=== PATIENT | female | born 1960 | race Caucasian/White ===

== ENCOUNTER 2016-12-11 20:43 | Emergency (ER) | payer BC, OTHER ==
[~2016-12-11] VITALS: Ht 162.6 cm; Wt 77.0 kg
[~2016-12-11 20:43] MED LIST: AMLO-145; LISI40TA; METO50TA16
[2016-12-11 20:49] VITALS: Ht 162.6 cm; Wt 77.0 kg
[2016-12-11] MEDS ORDERED: SOD CHLORIDE 0.9% 1,000 ML IV STA (21:34)
[2016-12-11] MEDS ORDERED: ONDANSETRON 4 MG INJ IV STA (21:34)
[2016-12-11] MEDS ORDERED: morphine 4 MG/ML VIAL IV STA (21:34)
[2016-12-11 22:03] LABS: ADD SCAN DIFF NO
[2016-12-11 22:05] LABS: BASOPHIL # 0.1 10^3/ul (0.0-0.1); BASOPHILS % 0.5 % (0.0-2.0); EOSINOPHILS # 0.1 10^3/ul (0.0-0.5); EOSINOPHILS % 1.1 % (0.0-7.0); HEMOGLOBIN 12.9 g/dl (12.0-16.0); LYMPHOCYTES # 2.8 10^3/ul (0.8-2.9); LYMPHOCYTES % 26.8 % (15.0-51.0); MEAN CORPUSCULAR HEMOGLOBIN 32.4 pg (29.0-33.0); MEAN CORPUSCULAR HGB CONC 34.9 g/dl (32.0-37.0); MEAN PLATELET VOLUME 9.5 fl (7.4-10.4); MONOCYTE # 0.7 10^3/ul (0.3-0.9); MONOCYTES % 6.9 % (0.0-11.0); NEUTROPHIL # 6.7 10^3/ul (1.6-7.5); NEUTROPHILS % 64.3 % (39.0-77.0); PLATELET COUNT 310 10^3/UL (140-415); RED BLOOD COUNT 3.98 10^6/ul (4.20-5.40); WHITE BLOOD COUNT 10.4 10^3/ul (4.8-10.8)
[2016-12-11 22:08] LABS: ADD UMIC YES; UR ASCORBIC ACID NEGATIVE (NEGATIVE); UR BILIRUBIN (Dip) NEGATIVE (NEGATIVE); UR BLOOD (Dip) 2+ mg/dL (NEGATIVE); UR CLARITY CLEAR (CLEAR); UR COLOR YELLOW (YELLOW); UR GLUCOSE (Dip) NEGATIVE (NEGATIVE); UR KETONES (Dip) NEGATIVE (NEGATIVE); UR LEUKOCYTE ESTERASE (Dip) TRACE Leu/ul (NEGATIVE); UR MUCUS FEW /HPF (NONE SEEN); UR NITRITE (Dip) NEGATIVE (NEGATIVE); UR RBC 7 /HPF (0-5); UR SPECIFIC GRAVITY (Dip) 1.023 (1.003-1.030); UR SQUAMOUS EPITHELIAL CELL FEW /HPF (FEW); UR TOTAL PROTEIN (Dip) NEGATIVE (NEGATIVE); UR UROBILINOGEN (Dip) 2+ mg/dL (NEGATIVE)
[2016-12-11 22:22] LABS: ALANINE AMINOTRANSFERASE 107 IU/L (13-69); ALBUMIN 4.9 g/dl (3.3-4.9); ALBUMIN/GLOBULIN RATIO 1.68; ALKALINE PHOSPHATASE 101 IU/L (42-121); ANION GAP 18 (8-16); ASPARTATE AMINO TRANSFERASE 217 IU/L (15-46); BILIRUBIN,INDIRECT 0.7 mg/dl (0-1.1); BILIRUBIN,TOTAL 0.7 mg/dl (0.2-1.3); BLOOD UREA NITROGEN 16 mg/dl (7-20); CALCIUM 10.4 mg/dl (8.4-10.2); CARBON DIOXIDE 31 mmol/L (21-31); CHLORIDE 97 mmol/L (97-110); CREATININE 0.71 mg/dl (0.44-1.00); GLUCOSE 114 mg/dl (70-220); POTASSIUM 3.5 mmol/L (3.5-5.1); SODIUM 142 mmol/L (135-144); TOTAL PROTEIN 7.8 g/dl (6.1-8.1)
[2016-12-11 22:36] LABS: TROPONIN-I < 0.012 ng/ml (0.00-0.12)
--- NOTE | 2016-12-11 22:52 | RADRPT ---
PROCEDURE: US right upper quadrant CLINICAL INDICATION: Abdominal pain TECHNIQUE: Multiple real-time images were acquired of the patient's right upper abdomen utilizing a high resolution transducer. COMPARISON: None available FINDINGS: Liver: Normal in size, contour and echogenicity. The maximum dimension estimated at 7.5 cm . Gallbladder: Multiple mobile echogenic foci with distal acoustic shadowing are present. . There is no evidence of gallbladder wall thickening or pericholecystic fluid. No sonographic Thrasher's sign i s reported. Common bile duct: Prominent; 6.6 mm. There is no evidence for choledocholithiasis. Right Kidney: Normal; maximum length measured at approximately 10.6 cm. Pancreas: Visualized portions are normal. The tail is partially obscured by bowel gas. RPTAT:HJJR IMPRESSION: Cholelithiasis and slight prominence of the common bile duct unable to exclude cholecystitis despite the lack of reporting for a sonographic Thrasher's sign or gallbladder wall thickening. Physician Meghana Date Time Electronically viewed and signed by Physician Meghana on 12/11/2016 22:52 /
[2016-12-11] MEDS ORDERED: MULTI PO (23:10)
--- NOTE | 2016-12-11 23:16 | ERA ---
ER Documentation Chief Complaint Date/Time DATE: 12/11/16 TIME: 23:13 Chief Complaint epigastric burning pain an hour ago, took Prilosec 40 minutes ago HPI Patient is a 56-year-old female with hypertension and alcohol abuse who presents with abdominal pain. Tonight she had Romanian food with pepper and then started with abdominal pain this evening. The pain is been constant. She feels pain in the right upper quadrant and epigastric area. She denies fevers. She has had vomiting. She tried Prilosec. She does have a primary doctor Dr. Uy. WOOD All systems reviewed and are negative except as per history of present illness. Medications Home Meds Reported Medications Multivitamins* (Theragran*) 1 Tab Tab, 1 TAB PO DAILY, TAB 12/11/16 Amlodipine Besylate* (Amlodipine Besylate*) 5 Mg Tablet, DAILY 10/29/13 Lisinopril* (Prinivil*) 40 Mg Tablet, DAILY 10/29/13 Metoprolol Succinate* (Toprol XL*) 50 Mg Tab.er.24h 10/29/13 Allergies Allergies: Coded Allergies: No Known Allergy (Unverified , 12/11/16) PMhx/Soc Medical and Surgical Hx: pt denies Surgical Hx History of Surgery: No Anesthesia Reaction: No Hx Neurological Disorder: No Hx Respiratory Disorders: No Hx Cardiac Disorders: Yes (HTN) Hx Psychiatric Problems: No Hx Miscellaneous Medical Probl: No Hx Alcohol Use: Yes (Per daughter everyday drinker) Hx Substance Use: No Hx Tobacco Use: No Smoking Status: Never smoker FmHx Family History: diabetes Physical Exam Vitals Vital Signs Date Time Temp Pulse Resp B/P Pulse Ox O2 Delivery O2 Flow Rate FiO2 12/11/16 20:49 98.3 95 18 144/76 100 Physical Exam Const: Moderate distress secondary to pain Head: Atraumatic Eyes: Normal Conjunctiva ENT: Normal External Ears, Nose and Mouth. Neck: Full range of motion..~ No meningismus. Resp: Clear to auscultation bilaterally Cardio: Regular rate and rhythm, no murmurs Abd: Soft, right upper quadrant and midepigastric abdominal pain without rebound or guarding Skin: No petechiae or rashes Back: No midline or flank tenderness Ext: No cyanosis, or edema Neur: Awake and alert Psych: Normal Mood and Affect Result Diagram: 12/11/16213412/11/162134 Results 24 hrs Laboratory Tests Test 12/11/16 21:35 White Blood Count 10.410^3/ul Red Blood Count 3.9810^6/ul Hemoglobin 12.9g/dl Hematocrit 37.0% Mean Corpuscular Volume 93.0fl Mean Corpuscular Hemoglobin 32.4pg Mean Corpuscular Hemoglobin Concent 34.9g/dl Red Cell Distribution Width 12.0% Platelet Count 58260^3/UL Mean Platelet Volume 9.5fl Neutrophils % 64.3% Lymphocytes % 26.8% Monocytes % 6.9% Eosinophils % 1.1% Basophils % 0.5% Nucleated Red Blood Cells % 0.0/100WBC Neutrophils # 6.710^3/ul Lymphocytes # 2.810^3/ul Monocytes # 0.710^3/ul Eosinophils # 0.110^3/ul Basophils # 0.110^3/ul Nucleated Red Blood Cells # 0.010^3/ul Urine Color YELLOW Urine Clarity CLEAR Urine pH 5.0 Urine Specific Honor 1.023 Urine Ketones NEGATIVEmg/dL Urine Nitrite NEGATIVEmg/dL Urine Bilirubin NEGATIVEmg/dL Urine Urobilinogen 2+mg/dL Urine Leukocyte Esterase TRACELeu/ul Urine Microscopic RBC 7/HPF Urine Microscopic WBC 2/HPF Urine Squamous Epithelial Cells FEW/HPF Urine Mucus FEW/HPF Urine Hemoglobin 2+mg/dL Urine Glucose NEGATIVEmg/dL Urine Total Protein NEGATIVEmg/dl Sodium Level 142mmol/L Potassium Level 3.5mmol/L Chloride Level 97mmol/L Carbon Dioxide Level 31mmol/L Anion Gap 18 Blood Urea Nitrogen 16mg/dl Creatinine 0.71mg/dl Glucose Level 114mg/dl Calcium Level 10.4mg/dl Total Bilirubin 0.7mg/dl Direct Bilirubin 0.00mg/dl Indirect Bilirubin 0.7mg/dl Aspartate Amino Transf (AST/SGOT) 217IU/L Alanine Aminotransferase (ALT/SGPT) 107IU/L Alkaline Phosphatase 101IU/L Troponin I < 0.012ng/ml Total Protein 7.8g/dl Albumin 4.9g/dl Globulin 2.90g/dl Albumin/Globulin Ratio 1.68 Lipase Pending Current Medications Medications (Trade) Dose Ordered Sig/Estefany Route PRN Reason Start Time Stop Time Status Last Admin Dose Admin Sodium Chloride (NS) 1,000 ml @ 1,000 mls/hr Q1H STAT IV 12/11/16 21:34 12/11/16 22:33 DC 12/11/16 21:53 Morphine Sulfate (morphine) 4 mg ONCE STAT IV 12/11/16 21:34 12/11/16 21:35 DC 12/11/16 21:54 Ondansetron HCl (Zofran Inj) 4 mg ONCE STAT IV 12/11/16 21:34 12/11/16 21:35 DC 12/11/16 21:54 Procedures/MDM Ultrasound shows gallstones but no obvious cholecystitis per radiology. EKG read by me: Rate/Rhythm: Regular rate and rhythm at a rate of 80 Intervals: Normal Impression: No evidence of ischemia or arrhythmia Patient is a 56-year-old female with hypertension who presents with abdominal pain. She was found to have acute pancreatitis. Her lipase is elevated. Her AST is 200 and her ALT is 100 consistent with alcohol abuse. The patient also has gallstones however I feel her primary cause of her pancreatitis is likely the alcohol. She may need further evaluation for the gallstones and may benefit from delayed cholecystectomy. The patient was given pain medications and fluids and feels better however will require admission for the elevated lipase. Departure Diagnosis: Primary Impression: Pancreatitis Qualified Code: K85.90 - Acute pancreatitis, unspecified complication status, unspecified pancreatitis type Additional Impression: Abdominal pain Qualified Code: R10.13 - Epigastric pain Condition: JOSSELINE Adkins MD Dec 11, 2016 23:15
[2016-12-12] MEDS ORDERED: ONDANSETRON 4 MG INJ IV STA (03:52)
[2016-12-12] MEDS ORDERED: morphine 2 MG INJ IV ONE (04:00)
[2016-12-12 06:19] VITALS: BP 111/73; PULSE 71; RESP 19
== END 2016-12-12 07:20 | disposition short-term general hospital (02) ==
LOC: E/R 20:43
DX: K85.90 Acute pancreatitis without necrosis or infection, unspecified (principal); I10 Essential (primary) hypertension
CPT/HCPCS: 36415; 76705; 80053; 80306; 81001; 83690; 84484; 85025; 93005; 96374; 96375; 96376; 99285; J2270; J2405; J7030